=== PATIENT | male | born 1985 | race Caucasian/White ===

== ENCOUNTER 2025-05-25 05:59 | Emergency (ER) | payer SELFPAY ==
[2025-05-25 06:41] LABS: Absolute Lymphocytes (CBC) 1.2 K/uL (0.7-4.9); Hematocrit 39.8 % (39.6-49.0); Hemoglobin 14.2 g/dL (13.6-17.9); MCH 31.5 pg (27.0-35.0); MCHC 35.6 g/dL (32.0-36.0); MCV 88.3 fL (80-100); MPV 7.1 fL (7.6-11.3); Nucleated RBC Absolute Count 0.0 (0-0); Nucleated Red Blood Cells % 0.0 % (0-0); RBC Red Blood Cell Count 4.51 M/uL (4.33-5.43); White Blood Count 6.30 thou/uL (4.3-10.9)
[2025-05-25 06:59] LABS: ALT/SGPT 46.0 U/L (16-61); AST/SGOT 52.0 U/L (15-37); Albumin 3.4 g/dL (3.4-5.0); Albumin/Globulin Ratio 1.1 (1.1-1.8); Alkaline Phosphatase 70.0 U/L (45-117); Anion Gap 10.5 mEq/L (5.0-15.0); BUN Blood Urea Nitrogen 19.0 mg/dL (7-18); Globulin 3.1 g/dL (2.3-3.5); Glucose Level 93.0 mg/dL (74-106); Lipase 15.0 U/L (13-75); Potassium 3.5 mEq/L (3.5-5.1)
--- NOTE | 2025-05-25 07:07 | ER ---
Nurse's Notes [facility] Name: Juan Monsivais Age: 40 yrs Sex: Male : 1985 Arrival Date: 05/25/2025 Time: 05:59 Bed 5 Private MD: Diagnosis: Abdominal pain, unspecified Presentation: 05/25 06:05 Chief complaint: Patient states: my stomach has been hurting for a couple of days. It bm8 feels like someone is kicking it. pain is continuous EMS states: pt has a laceration to right side of nose, bruising and swelling to right medial eye socket. Pt has complained of nose pain since we picked him up and states that it has been bleeding for a while. Also c/o upper abd pain for two days. 06:05 Coronavirus screen: At this time, the client does not indicate any symptoms associated bm8 with coronavirus-19. Ebola Screen: Patient negative for fever greater than or equal to 101.5 degrees Fahrenheit, and additional compatible Ebola Virus Disease symptoms Patient denies exposure to infectious person. Patient denies travel to an Ebola-affected area in the 21 days before illness onset. No symptoms or risks identified at this time. Initial Sepsis Screen: Does the patient meet any 2 criteria? No. Patient's initial sepsis screen is negative. Does the patient have a suspected source of infection? No. Patient's initial sepsis screen is negative. Risk Assessment: Do you want to hurt yourself or someone else? Patient reports no desire to harm self or others. Onset of symptoms was May 22, 2025. 06:05 Method Of Arrival: EMS: [facility] bm8 06:05 Acuity: JUMANA 3 bm8 Triage Assessment: 06:10 General: Appears uncomfortable, Behavior is calm, cooperative, appropriate for age. bm8 Pain: Complains of pain in right eye, nose, epigastric area, right upper quadrant and left upper quadrant Pain currently is 5 out of 10 on a pain scale. EENT: Nares with bleeding noted on right. 06:10 Neuro: No deficits noted. Level of Consciousness is awake, alert, obeys commands, bm8 Oriented to person, place, time, situation, Appropriate for age. Cardiovascular: Denies chest pain, Capillary refill < 3 seconds in bilateral fingers Patient's skin is warm and dry. Respiratory: Airway is patent Respiratory effort is even, unlabored, Respiratory pattern is regular, symmetrical. GI: Abdomen is flat, non-distended, Reports upper abdominal pain, Pain is 5 out of 10 on a pain scale. Patient currently denies vomiting. : No signs and/or symptoms were reported regarding the genitourinary system. Derm: No signs and/or symptoms reported regarding the dermatologic system. Musculoskeletal: No signs and/or symptoms reported regarding the musculoskeletal system. Historical: - Allergies: 06:24 No Known Allergies; bm8 - Home Meds: 06:24 None [Active]; bm8 - PMHx: 06:24 None; bm8 - PSHx: 06:24 None; bm8 - Immunization history:: Adult Immunizations up to date. - Infectious Disease History:: Denies. - Social history:: Smoking status: Patient reports the use of cigarette tobacco products, Patient uses alcohol, Patient/guardian denies using street drugs. Screenin:28 [facility] ED Fall Risk Assessment (Adult) History of falling in the last 3 months, bm8 including since admission No falls in past 3 months (0 pts) Confusion or Disorientation No (0 pts) Intoxicated or Sedated Yes (3 pts) Impaired Gait Yes (1 pt) Mobility Assist Device Used No (0 pt) Altered Elimination No (0 pt) Score/Fall Risk Level 0 - 2 = Low Risk Oriented to surroundings, Maintained a safe environment, Educated pt \T\ family on fall prevention, incl call for assistance when getting out of bed, Assessed \T\ reinforced patient's understanding of fall precautions, Hourly rounding (assess needs \T\ fall precautionary measures) done, Used ambulatory aids as needed (educated on \T\ assisted with), Used gait belt as appropriate. Abuse screen: Denies threats or abuse. Nutritional screening: No deficits noted. Tuberculosis screening: No symptoms or risk factors identified. Assessment: 06:30 Reassessment: see triage assessment. bm8 Vital Signs: 06:05 BP 134 / 99; Pulse 76; Resp 17; Temp 97.6; Pulse Ox 99% ; Weight 72.57 kg; Height 5 ft. bm8 7 in. ; Pain 5/10; 07:27 BP 110 / 78; Pulse 75; Resp 15; Pulse Ox 100% ; jl7 06:05 Body Mass Index 25.06 (72.57 kg, 170.18 cm) bm8 06:05 Pain Scale: Adult bm8 ED Course: 06:10 Patient arrived in ED. cc6 06:10 Arm band placed on right wrist. bm8 06:11 Nakul Lynch, RN is Primary Nurse. bm8 06:14 Atilio Keane DO is Attending Physician. tt7 06:24 Triage completed. bm8 06:28 Patient has correct armband on for positive identification. Bed in low position. Call bm8 light in reach. Side rails up X 1. Client placed on continuous cardiac and pulse oximetry monitoring. NIBP monitoring applied. Pulse ox on. NIBP on. Door closed. Noise minimized. Warm blanket given. Pillow given. Verbal reassurance given. Head of bed elevated. 06:28 No provider procedures requiring assistance completed. Initial lab(s) drawn, by mi, bm8 sent to lab. Patient maintains SpO2 saturation greater than 95% on room air. Response to oxygen therapy: symptoms improved. 07:03 Provided Education on: post er care. Report given to MYNOR Land. bm8 07:27 IV discontinued, intact, bleeding controlled, No redness/swelling at site. Pressure jl7 dressing applied. Administered Medications: No medications were administered Medication: 06:28 VIS not applicable for this client. bm8 Outcome: 07:07 Discharge ordered by . tt7 07:27 Discharged to home ambulatory, jl7 07:27 Condition: stable 07:27 Discharge instructions given to patient, Instructed on discharge instructions, follow up and referral plans. Demonstrated understanding of instructions, follow-up care, 07:29 Patient left the ED. jl7 Signatures: Fernie De La Rosa RN RN jl7 Nakul Lynch, RN MYNOR bm8 Jackelyn Rocha, MYNOR LOWE cc6 Atilio Keane DO DO tt7
--- NOTE | 2025-05-25 07:07 | EDPHYS ---
Physician Documentation [facility] Name: Juan Monsivais Age: 40 yrs Sex: Male : 1985 Arrival Date: 05/25/2025 Time: 05:59 Bed 5 Private MD: ED Physician Atilio Keane Historical: - Allergies: 05/25 06:24 No Known Allergies; bm8 - Home Meds: 06:24 None [Active]; bm8 - PMHx: 06:24 None; bm8 - PSHx: 06:24 None; bm8 - Immunization history:: Adult Immunizations up to date. - Infectious Disease History:: Denies. - Social history:: Smoking status: Patient reports the use of cigarette tobacco products, Patient uses alcohol, Patient/guardian denies using street drugs. Vital Signs: 06:05 BP 134 / 99; Pulse 76; Resp 17; Temp 97.6; Pulse Ox 99% ; Weight 72.57 kg; Height 5 ft. bm8 7 in. ; Pain 12/23; 07:27 BP 110 / 78; Pulse 75; Resp 15; Pulse Ox 100% ; jl7 06:05 Body Mass Index 25.06 (72.57 kg, 170.18 cm) bm8 06:05 Pain Scale: Adult bm8 MDM: 06:14 Medical Screening Exam initiated tt7 05/25 06:21 Order name: CBC with Diff; Complete Time: 06:55 tt7 05/25 06:21 Order name: CMP; Complete Time: 07:00 tt7 05/25 06:21 Order name: Lipase; Complete Time: 07:00 tt7 05/25 06:21 Order name: Labs collected and sent; Complete Time: 06:30 tt7 Administered Medications: No medications were administered Disposition Summary: 05/25/25 07:07 Discharge Ordered Notes: Location: Home tt7 Problem: new tt7 Symptoms: are resolved tt7 Condition: Stable tt7 Diagnosis - Abdominal pain, unspecified tt7 Followup: tt7 - With: Emergency Department - When: As needed - Reason: Followup: tt7 - With: Private Physician - When: 1 - 2 days - Reason: Recheck today's complaints, Re-evaluation by your physician Discharge Instructions: - Discharge Summary Sheet tt7 - Abdominal Pain, Adult tt7 Forms: - Medication Reconciliation Form tt7 - Antibiotic Education tt7 - Prescription Opioid Use tt7 - Patient Portal Instructions tt7 - Leadership Thank You Letter tt7 Addendum: 05/28/2025 17:57 Addendum: 40-year-old male presents to the emergency department for evaluation of t t7 burning epigastric abdominal pain which started today, no exacerbating or alleviating factors, the pain is described as mild, patient has no significant past medical history. Constitutional: denies fever Respiratory: denies SOB, cough Cardiovascular: denies chest pain, palpitations GI: Reports abdominal pain, denies nausea, vomiting Neuro: denies focal weakness Skin: denies rash Constitutional: vital signs reviewed, well appearing Head: normocephalic, atraumatic Eyes: no conjunctival injection, anicteric sclerae ENMT: mucus membranes moist Neck: trachea midline, no JVD, no meningismus Respiratory: normal respiratory effort, no accessory muscle use, lungs CTAB, no wheezing or rales Cardiovascular: Regular rate and rhythm, no murmurs, no rubs, no lower extremity edema Abdomen: soft, nondistended, nontender, no guarding or rebound, negative Go's sign, no McBurney point tenderness MSK: normal ROM of extremities, no gross deformities Skin: warm, dry, intact, no rash Neuro: alert and oriented with appropriate mental status, normal speech, follows commands, no focal neurologic deficits Psych: appropriate mood and affect Vital signs are stable, physical exam is benign, standard cardiac laboratory studies ordered, patient refusing any IV or oral medications at this time, states he simply wants to get his blood work evaluated, I discussed the results of the workup with the patient including overall reassuring laboratory studies, on reassessment the patient is resting comfortably, continues to refuse any further treatment, after completion of the patient's emergency department evaluation, I do not suspect a life-threatening or disabling process. Patient is medically stable and not in need of emergent medical intervention. I had a detailed discussion with the patient regarding the historical points, exam findings, emergency department evaluation, diagnostic results, and the discharge diagnosis. I instructed the patient on outpatient management of their condition. I discussed the need for outpatient follow-up with a primary care physician. I informed the patient on return precautions, including the need to return to the ED if symptoms do not improve, worsen, or if there are any questions or concerns that arise at home. The patient was discharged in stable condition . Co-signature as Attending Physician, Atilio Keane DO. Signatures: Dispatcher [employer] EDNakul López, RN RN bm8 Atilio Keane DO DO tt7
[2025-05-25 07:49] VITALS: TEMP 97.6
[2025-05-25 07:50] VITALS: BP 110/78; O2SAT 100
== END 2025-05-25 07:29 | disposition home or self-care (01) ==
LOC: ER 05:59 → EDBD 05:59 → ER 07:29
DX: R10.13 Epigastric pain (principal)
CPT/HCPCS: 36415; 80053; 83690; 85025; 99284